=== PATIENT | male | born 1965 | race Caucasian/White ===

== ENCOUNTER 2018-01-08 18:45 | Inpatient (IN) | payer OTHER, SELFPAY ==
[2018-01-08 19:20] VITALS: BP 154/85; PULSE 89; RESP 23; TEMP 36.1; O2SAT 96; BMI 29.8
--- NOTE | 2018-01-08 19:23 | DI.RAD.S_ITS ---
PROCEDURE: XR ACUTE ABDOMEN SERIES INDICATIONS: vomiting, small bowel obstruction TECHNIQUE: One view chest and two views of the abdomen were acquired. COMPARISON: [facility], CT, ABDOMEN/PELVIS WITH CONTRAST, 07/21/2017, 1:28. FINDINGS: Surgical changes and devices: None. Chest: Lungs are clear. Heart size is normal. No pleural effusions. No pneumoperitoneum. Abdomen: Bowel gas pattern demonstrates several scattered air-fluid levels as well as a mildly dilated loop of bowel within the midabdomen. No suspicious calcifications. Visualized solid organ contours appear normal. Bones: No suspicious bony lesions. IMPRESSION: Scattered air-fluid levels as well as a mildly dilated loop of bowel within the midabdomen. This could be represent ileus versus developing partial small bowel obstruction. Dictated by: Poonam Tapia M.D. on 01/08/2018 at 20:19 Approved by: Poonam Tapia M.D. on 01/08/2018 at 20:20
[2018-01-08] MEDS: MORPHINE 4 MG/ML INJ IV (19:28)
[2018-01-08] MEDS: SODIUM CHLORIDE 0.9% 1,000 ML 1000 ML IV (19:28)
[2018-01-08] MEDS: ONDANSETRON 4 MG/2 ML INJ IV (19:29)
[2018-01-08 19:30] LABS: Add Manual Diff / Slide Review NO; Basophils Percent Auto 0.2 % (0-2); Eosinophils Percent Auto 0.2 % (2-4); Hematocrit 46.6 % (41-53); Hemoglobin 16.2 g/dL (13.5-17.5); Lymphocytes Percent Auto 8.9 % (25-40); Mean Corpuscular HGB Conc 34.8 % (30-36); Monocytes Percent Auto 3.9 % (3-14); Neutrophils Absolute Auto 15200 /uL (3000-5900); Neutrophils Percent Auto 86.8 % (50-75); Platelet Count 246 X10^3/uL (150-400); Red Blood Cell Count 5.24 X10^6/uL (4.5-5.9); Red Cell Distribution Width 13.6 % (11.6-14.8); White Blood Cell Count 17.5 X10^3/uL (4.5-11.0)
[2018-01-08 19:40] VITALS: BP 149/92; PULSE 80; RESP 12; O2SAT 100
[2018-01-08 19:41] LABS: Alanine Aminotransferase 47 IU/L (21-72); Albumin 5.1 g/dL (3.5-5.0); Albumin Globulin Ratio 1.8 (1.0-2.8); Alkaline Phosphatase 67 U/L (38-126); Aspartate Aminotransferase 33 IU/L (17-59); BUN Creatinine Ratio 28.8 (6-22); Bilirubin Total 1.7 mg/dL (0.2-1.3); Blood Urea Nitrogen 23 mg/dL (9-20); Calcium 9.7 mg/dL (8.4-10.2); Carbon Dioxide 27 mmol/L (22-32); Chloride 99 mmol/L (98-107); Creatine Kinase 132 U/L (55-170); Estimated Glomerular Filt Rate > 60.0 mL/min (>60); Globulin 2.8 g/dL (1.7-4.1); Glucose 139 mg/dL (70-100); HEMOLYSIS < 15 (0-50); Lipase 49 U/L (23-300); Potassium 3.5 mmol/L (3.4-5.1); Sodium 141 mmol/L (137-145); Total Protein 7.9 g/dL (6.3-8.2)
--- NOTE | 2018-01-08 19:41 | ED.ABDPAIN ---
HPI - Abdominal Pain General Chief Complaint: Abdominal Pain Stated Complaint: THINKS BOWEL OBSTRUCTION Time Seen by Provider: 01/08/18 19:22 Source: patient Mode of arrival: ambulatory Limitations: no limitations History of Present Illness HPI narrative: Patient is a 52-year-old male who presents with abdominal pain and nausea. He says it is a small bowel obstruction he has had small bowel obstructions in the past. He had a colectomy due to diverticulitis. He says this started about 230pm. He is extremely dizzy lightheaded he is requiring assistance walking. He denies any chest pain or heart palpitations or shortness of breath. MD complaint: abdominal pain Onset (ago): hour(s) Pain Consistency: constant Location: diffuse Related Data Home Medications Medication Instructions Recorded Confirmed fluoxetine 20 mg PO DAILY 01/08/18 01/08/18 lisinopril-hydrochlorothiazide 1 tab PO DAILY 01/08/18 01/08/18 simvastatin 20 mg PO QPM 01/08/18 01/08/18 Allergies Allergy/AdvReac Type Severity Reaction Status Date / Time No Known Drug Allergies Allergy Verified 01/08/18 19:23 Review of Systems Review of Systems All systems reviewed & are unremarkable except as noted in HPI and below Constitutional Denies chills, Denies fever(s), Denies lethargy and Denies weakness Cardiovascular Denies chest pain, Denies irregular heart rhythm, Reports lightheadedness, Denies palpitations, Denies dyspnea, Denies dyspnea on exertion and Denies orthopnea Respiratory Denies cough, Denies dyspnea, Denies dyspnea on exertion and Denies wheezing Gastrointestinal Gastrointestinal: Reports as per HPI Musculoskeletal Denies back pain, Denies muscle weakness, Denies numbness and Denies tingling Integumentary/Breasts Denies pruritus, Denies erythema, Denies rash and Denies wounds Neurologic Denies numbness, Denies tingling and Denies weakness Endocrine Denies palpitations Allergic/Immunologic Denies wheezing [facility] Medical History Depression (Acute) Hyperlipidemia (Acute) Hypertension (Acute) Skin cancer of lip (Acute) Small bowel obstruction (Acute) Surgical History History of appendectomy (Acute) History of colon resection (Acute) Hx of tonsillectomy (Acute) Social History household members: spouse Smoking Status: Current some day smoker alcohol intake: current Exam Initial Vital Signs Initial Vital Signs: Vital Signs Temperature 96.9 F L 01/08/18 19:20 Pulse Rate 89 01/08/18 19:20 Respiratory Rate 23 01/08/18 19:20 Blood Pressure 154/85 H 01/08/18 19:20 Pulse Oximetry 96 01/08/18 19:20 Const General: cooperative and ill appearing (Ambulatory unsteady on feet) Nutritional Appearance: average body habitus [facility] Head: normocephalic and atraumatic Neck Neck: normal visual inspection and full ROM Chest Chest: normal inspection of the chest Resp Effort & Inspection: normal respiratory effort, able to speak in complete sentences, no respiratory distress and no use of accessory muscles Auscultation: clear to auscultation bilaterally, no rales, no rhonchi and no wheezes Cardio Rate: regular rate Rhythm: regular rhythm Heart Sounds: no click, no gallops, no murmurs and no rubs Pulses: normal peripheral pulses GI Palpation: soft, No firm, No guarding and tender (Diffusely) Auscultation: abnormal bowel sounds (Decreased) Skin General: no rashes or lesions noted, No jaundice and No petechiae Course Orders Ordered: ED Orders 01/08/18 19:20 Complete Blood Count AUTO DIFF Stat Comprehensive Metabolic Panel Stat Lactate (Lactic Acid) Stat Lipase Stat Troponin & CK Cardiac Panel Stat 01/08/18 19:23 XR acute abdomen series Stat EKG-12 Lead Stat 01/08/18 20:17 CT abdomen pelvis w con Stat 01/08/18 22:26 Consult to Physician Routine 01/08/18 23:30 Lactate 4HR (Lactic Acid Rflx) Stat Sodium Chloride (Normal Saline 0.9%) 1,000 mls @ 125 mls/hr IV CONT GWENDOLYN Last Admin: 01/08/18 22:53 Dose: 125 mls/hr Morphine Sulfate (Morphine) 2 mg IV Q4HR PRN PRN Reason: Pain, Moderate (4-6) Ondansetron HCl (Zofran) 4 mg IV Q4HR PRN PRN Reason: Nausea And Vomiting Discontinued Medications Sodium Chloride (Normal Saline 0.9%) 1,000 mls @ 1,000 mls/hr IV CONT GWENDOLYN Last Infusion: 01/08/18 20:55 Dose: 0 mls/hr Admin: 01/08/18 19:28 Dose: 1,000 mls/hr Morphine Sulfate (Morphine) 4 mg IV NOW ONE Stop: 01/08/18 19:24 Last Admin: 01/08/18 19:28 Dose: 4 mg Ondansetron HCl (Zofran) 4 mg IV NOW ONE Stop: 01/08/18 19:24 Last Admin: 01/08/18 19:29 Dose: 4 mg Consultations Consultation #1: Dr. Santoyo accepts observation for partial small-bowel obstruction. Vital Signs - 8 hr 01/08/18 19:40 01/08/18 21:16 01/08/18 21:55 Temperature Pulse Rate 80 77 73 Respiratory Rate 12 12 23 Blood Pressure 127/69 H Blood Pressure [Left Arm] 149/92 H 131/76 H Pulse Oximetry 100 98 96 01/08/18 22:10 01/09/18 00:03 01/09/18 00:31 Temperature 98.5 F 98.3 F Pulse Rate 76 70 Respiratory Rate 19 16 Blood Pressure 137/77 H 118/70 Blood Pressure [Left Arm] Pulse Oximetry 95 MDM - Abdominal Pain Lab Data Attestation: I reviewed the patient's lab results. Result diagrams: 01/08/18 19:20 01/08/18 19:20 Lab Results 01/08/18 01/08/18 01/08/18 Range/Units 19:20 19:20 19:20 WBC 17.5 H (4.5-11.0) X10^3/uL RBC 5.24 (4.5-5.9) X10^6/uL Hgb 16.2 (13.5-17.5) g/dL Hct 46.6 (41-53) % MCV 89.0 (80-100) fL MCH 31.0 (26-34) PG MCHC 34.8 (30-36) % RDW 13.6 (11.6-14.8) % Plt Count 246 (150-400) X10^3/uL Neut % (Auto) 86.8 H (50-75) % Lymph % (Auto) 8.9 L (25-40) % [place] % (Auto) 3.9 (3-14) % Eos % (Auto) 0.2 L (2-4) % Baso % (Auto) 0.2 (0-2) % Neut # (Auto) 72363 H (6768-6068) /uL Sodium 141 (137-145) mmol/L Potassium 3.5 (3.4-5.1) mmol/L Chloride 99 (98-107) mmol/L Carbon Dioxide 27 (22-32) mmol/L BUN 23 H (9-20) mg/dL Creatinine 0.80 (0.66-1.25) mg/dL Estimated GFR > 60.0 (>60) mL/min BUN/Creatinine Ratio 28.8 H (6-22) Glucose 139 H (70-100) mg/dL Lactate 2.9 H (0.7-2.1) mmol/L Calcium 9.7 (8.4-10.2) mg/dL Total Bilirubin 1.7 H (0.2-1.3) mg/dL AST 33 (17-59) IU/L ALT 47 (21-72) IU/L Alkaline Phosphatase 67 (38-126) U/L Total Creatine Kinase 132 (55-170) U/L CK-MB (CK-2) 1.50 (<2.37) ng/mL CK-MB (CK-2) Rel Index 1.1 L (1.5-5.0) % Troponin I < 0.012 (0.01-0.034) ng/mL Total Protein 7.9 (6.3-8.2) g/dL Albumin 5.1 H (3.5-5.0) g/dL Globulin 2.8 (1.7-4.1) g/dL Albumin/Globulin Ratio 1.8 (1.0-2.8) Lipase 49 (23-300) U/L /30/18 Range/Units 23:30 WBC (4.5-11.0) X10^3/uL RBC (4.5-5.9) X10^6/uL Hgb (13.5-17.5) g/dL Hct (41-53) % MCV (80-100) fL MCH (26-34) PG MCHC (30-36) % RDW (11.6-14.8) % Plt Count (150-400) X10^3/uL Neut % (Auto) (50-75) % Lymph % (Auto) (25-40) % [place] % (Auto) (3-14) % Eos % (Auto) (2-4) % Baso % (Auto) (0-2) % Neut # (Auto) (1256-7982) /uL Sodium (137-145) mmol/L Potassium (3.4-5.1) mmol/L Chloride (98-107) mmol/L Carbon Dioxide (22-32) mmol/L BUN (9-20) mg/dL Creatinine (0.66-1.25) mg/dL Estimated GFR (>60) mL/min BUN/Creatinine Ratio (6-22) Glucose (70-100) mg/dL Lactate 1.8 (0.7-2.1) mmol/L Calcium (8.4-10.2) mg/dL Total Bilirubin (0.2-1.3) mg/dL AST (17-59) IU/L ALT (21-72) IU/L Alkaline Phosphatase (38-126) U/L Total Creatine Kinase (55-170) U/L CK-MB (CK-2) (<2.37) ng/mL CK-MB (CK-2) Rel Index (1.5-5.0) % Troponin I (0.01-0.034) ng/mL Total Protein (6.3-8.2) g/dL Albumin (3.5-5.0) g/dL Globulin (1.7-4.1) g/dL Albumin/Globulin Ratio (1.0-2.8) Lipase (23-300) U/L Imaging Data Abdominal x-ray: Radiologist's impression: PROCEDURE: XR ACUTE ABDOMEN SERIES INDICATIONS: vomiting, small bowel obstruction TECHNIQUE: One view chest and two views of the abdomen were acquired. COMPARISON: [facility], CT, ABDOMEN/PELVIS WITH CONTRAST, 07/21/2017, 1:28. FINDINGS: Surgical changes and devices: None. Chest: Lungs are clear. Heart size is normal. No pleural effusions. No pneumoperitoneum. Abdomen: Bowel gas pattern demonstrates several scattered air-fluid levels as well as a mildly dilated loop of bowel within the midabdomen. No suspicious calcifications. Visualized solid organ contours appear normal. Bones: No suspicious bony lesions. IMPRESSION: Scattered air-fluid levels as well as a mildly dilated loop of bowel within the midabdomen. This could be represent ileus versus developing partial small bowel obstruction. Dictated by: Poonam Tapia M.D. on 01/08/2018 at 20:19 CT scan - abdomen: Radiologist's impression: PROCEDURE: CT ABDOMEN PELVIS W CON INDICATIONS: obstruction on x ray TECHNIQUE: After the administration of intravenous contrast, 5 mm thick sections acquired from the diaphragm to the symphysis. 5 mm coronal and sagittal reformats were acquired. For radiation dose reduction, the following was used: automated exposure control, adjustment of mA and/or kV according to patient size. COMPARISON: [facility], CT, ABDOMEN/PELVIS WITH CONTRAST, 11/12/2014, 9:06. FINDINGS: Image quality: Excellent. ABDOMEN: Lung bases: Lung bases are clear. Heart size is normal. Solid organs: Liver demonstrates mild enlargement and steatosis. Punctate low attenuation focus is present within the mid right hepatic lobe, unchanged and too small to definitively characterize. Gallbladder is unremarkable. Biliary system is non dilated. Pancreas enhances normally. Spleen is normal in size and enhancement. No adrenal nodules. Kidneys demonstrate normal size and enhancement, without hydronephrosis. Peritoneum and bowel: Air-fluid filled prominent loops of small bowel identified within the abdomen. Transition point is not definitively identified. Minimal free fluid is present. Nodes and vessels: No retroperitoneal or mesenteric adenopathy by size criteria. Aorta and inferior vena cava are normal in size. Miscellaneous: No ventral hernias. PELVIS: Genitourinary: Bladder wall thickness is normal. Miscellaneous: No inguinal hernias or adenopathy. Bones: No suspicious bony lesions. No vertebral body compression fractures. IMPRESSION: 1. Prominent loops of fluid-filled small bowel within the abdomen as above consistent with partial small bowel obstruction. Transition point is not definitively identified. No free air. Dictated by: Poonam Tapia M.D. on 01/08/2018 at 20:46 ECG Data Attestation: I personally reviewed and interpreted this ECG as follows: Prior ECG tracings: available for review Interpretation: Normal sinus rhythm rate [address] changes no T-wave inversions similar to previous EKG MDM Narrative Medical decision making narrative: The patient's pain and nausea is improved after 1 dose of nausea and pain medication. His abdomen is reexamined it is all a soft and mildly distended. Both CT and x-ray showed a partial small-bowel obstruction. Initially he does have an elevated lactic acid. Pain is not out of proportion there is no concern for ischemic bowel at this time. Initially he was ambulatory walking into the ED but got extremely light headed nauseated and almost passed out requiring 3 people to assist him. He says the lightheadedness has now also improved with IV fluids. Discharge Plan Departure Patient Disposition: Admitted as Observation Clinical Impression: Partial bowel obstruction Discharge Date/Time: 01/08/18 21:55 Interventions: ED Discharge Assessment Last Done: 01/08/18 21:55 Admit Date/Time: 01/08/18 21:46 Admit Provider: Frantz Santoyo
[2018-01-08 19:45] LABS: Lactate (Lactic Acid) 2.9 mmol/L (0.7-2.1)
[2018-01-08 19:56] LABS: CKMB % Relative Index 1.1 % (1.5-5.0)
[2018-01-08 19:57] LABS: Troponin I < 0.012 ng/mL (0.01-0.034)
--- NOTE | 2018-01-08 20:17 | DI.CT.S_ITS ---
PROCEDURE: CT ABDOMEN PELVIS W CON INDICATIONS: obstruction on x ray TECHNIQUE: After the administration of intravenous contrast, 5 mm thick sections acquired from the diaphragm to the symphysis. 5 mm coronal and sagittal reformats were acquired. For radiation dose reduction, the following was used: automated exposure control, adjustment of mA and/or kV according to patient size. COMPARISON: [facility], CT, ABDOMEN/PELVIS WITH CONTRAST, 11/12/2014, 9:06. FINDINGS: Image quality: Excellent. ABDOMEN: Lung bases: Lung bases are clear. Heart size is normal. Solid organs: Liver demonstrates mild enlargement and steatosis. Punctate low attenuation focus is present within the mid right hepatic lobe, unchanged and too small to definitively characterize. Gallbladder is unremarkable. Biliary system is non dilated. Pancreas enhances normally. Spleen is normal in size and enhancement. No adrenal nodules. Kidneys demonstrate normal size and enhancement, without hydronephrosis. Peritoneum and bowel: Air-fluid filled prominent loops of small bowel identified within the abdomen. Transition point is not definitively identified. Minimal free fluid is present. Nodes and vessels: No retroperitoneal or mesenteric adenopathy by size criteria. Aorta and inferior vena cava are normal in size. Miscellaneous: No ventral hernias. PELVIS: Genitourinary: Bladder wall thickness is normal. Miscellaneous: No inguinal hernias or adenopathy. Bones: No suspicious bony lesions. No vertebral body compression fractures. IMPRESSION: 1. Prominent loops of fluid-filled small bowel within the abdomen as above consistent with partial small bowel obstruction. Transition point is not definitively identified. No free air. Dictated by: Poonam Tapia M.D. on 01/08/2018 at 20:46 Approved by: Poonam Tapia M.D. on 01/08/2018 at 20:52
[2018-01-08 21:16] VITALS: BP 131/76; PULSE 77; RESP 12; O2SAT 98
[2018-01-08 21:55] VITALS: BP 127/69; PULSE 73; RESP 23; O2SAT 96
[2018-01-08 21:59] VITALS: BMI 29.8
[2018-01-08 22:10] VITALS: BP 137/77; PULSE 76; RESP 19; TEMP 36.9
--- NOTE | 2018-01-08 22:48 | PC.NURSE ---
Luis brought from ER, able to transfer self to bed. Gait steady. VS stable. Denies nausea, reports pain just starting to come back. Instructed to call nurse if pain increases & he needs pain medication, he agrees. Denies falls at home. Ambulated to BR, voided 650 ml clear yellow urine. UA sent to lab per SECURITY CLERK report of still needing sample. Pt Ox3 and call button is at his side. brought his own Cpap from home. Pt instructed to call if he has any needs or concerns tonight.
[2018-01-08] MEDS: SODIUM CHLORIDE 0.9% 1,000 ML 125 ML IV (22:53)
[2018-01-08 23:27] LABS: Reflexed Lactate in 2 Hours Y
[2018-01-08 23:49] LABS: Lactate 2HR (Lactic Acid Rflx) 1.8 mmol/L (0.7-2.1)
[2018-01-09] VITALS (10 sets, daily range): BP systolic 107–133; BP diastolic 61–84; PULSE 57–72; RESP 15–19; TEMP 36.4–36.9; O2SAT 95–96
[2018-01-09] MEDS: MORPHINE 2 MG/ML INJ IV (03:43)
[2018-01-09] MEDS: ONDANSETRON 4 MG/2 ML INJ IV (03:43)
--- NOTE | 2018-01-09 06:09 | PC.NURSE ---
NOC shift pt IND in room. Wearing CPAP. Patient denied nausea during first part of shit and rated his pain at a 2/10; denied need for pain meds and stated that 2/10 was tolerable. After pt got up to BR at 0340, pt report 6/10 and nausea. Administered 4mg Zofran IV and 2mg morphine IV. Let pt continue to sleep when time to reassess. NS running at 125ml/hr.
[2018-01-09] MEDS: SODIUM CHLORIDE 0.9% 1,000 ML 125 ML IV (06:14)
--- NOTE | 2018-01-09 08:45 | CM.DANOTE ---
Discharge Planning/Care Management DCP: assessment: case received, EMR reviewed (no H&P yet available) and went to room to meet with pt. He was found to be in bathroom. Room white board updated with DCPlanning contact info. Pt is a 52 year old male who admitted last night to care of hospitalist team. Payer: Ryder Edwards. PCP: Kehinde Wolf/listed PT is admitted for s/s of possible bowel obstruction in settiing of prior colectomy and SBOs/hx since that surgery. Pt at baseline is functionally independent. Does use CPAP at home. Lives with spouse P: check in with pt as POC unfolds to assist with any d/c needs that may arise. CM Discharge Assessment Start: 01/09/18 08:43 Freq: Status: Active Protocol: Document 01/09/18 08:43 ITV (Rec: 01/09/18 08:44 ITV [id number]) Discharge Planning Assessment History Provided By Patient Is this patient on Medicare? No Prior Living Arrangements House Household Members spouse Independent with ADL's Yes Is patient alert and oriented? Yes Review Status In Process Next Review Type Continued Stay Review
--- NOTE | 2018-01-09 09:17 | PC.NURSE ---
Day shift: Per convo with Pt provided info on both high and low-fiber diets. Rv Repair Technician notified about situation as well per convo w/ .
--- NOTE | 2018-01-09 12:19 | PC.NURSE ---
Day shift: Talked to Dr Hoffman about the orderes for UA. He is ok with that.
--- NOTE | 2018-01-09 12:27 | PC.NURSE ---
Day sift: Ok w/ Dr Hoffman if Pt has ice chips. Pt enjoying ice chips. Will cont to monitor. Call light in reach. Independent in room. Denies any pain or nausea at this time.
[2018-01-09 12:48] LABS: Bacteria Urine None Seen
[2018-01-09 13:00] LABS: Appearance Urine UA CLEAR; Bilirubin Urine UA NEGATIVE (NEGATIVE); Color Urine UA YELLOW; Glucose Urine UA NEGATIVE (Normal); Ketones Urine UA 1+ (NEGATIVE); Leukocyte Esterase Urine UA NEGATIVE (NEGATIVE); Nitrite Urine UA Negative (Negative); Occult Blood Urine UA TRACE-LYSED (Negative); Protein Urine UA NEGATIVE (Negative); Urobilinogen Urine UA 0.2 E.U./dL (0.2); pH Urine UA 7.5 (4.5-8.0)
--- NOTE | 2018-01-09 13:07 | PC.NURSE ---
Day shift: Emptied 100ml blackish bile fluid from IVIS drain.
[2018-01-09 13:13] LABS: RBC Urine 1-5/HPF (0-5/HPF); Squamous Epithelial Cell Urine 0-1 /HPF; WBC Urine 0-1/HPF (0-5/HPF)
[2018-01-09 13:14] LABS: Culture Indicated Urine Cult Not Indicated
--- NOTE | 2018-01-09 13:17 | PM.HP.1 ---
History of Present Illness Date Patient Seen: 01/09/18 Time Patient Seen: 11:17 Chief complaint: THINKS BOWEL OBSTRUCTION Narrative: Somewhat diffuse abdominal pain with associated nausea and vomiting. Patient notes the severity of the pain approximately 8/10. No associated chest pain nor shortness of breath nor palpitations. Patient also noted was feeling a bit lightheaded. Patient notes that he had a prior small bowel obstruction July of 2017. This was the 2nd small bowel obstruction. His 1st bowel obstruction was November of 2014. Patient has history of diverticulitis with a sigmoid colon resection in 1999. This appears to be the causation for his risk for fibrous adhesions and small-bowel obstruction. Patient History Medical History Depression (Acute) Hyperlipidemia (Acute) Hypertension (Acute) Skin cancer of lip (Acute) Small bowel obstruction (Acute) Surgical History History of appendectomy (Acute) History of colon resection (Acute) Hx of tonsillectomy (Acute) Family & Social History Social History: household members spouse Prior Living Arrangements House Safety & Behavioral: Feels Safe in Current Yes Environment Been Physically Hurt or No Threatened By a Person Suicidal Ideation Description None Suicide Plan Description No Plan Tobacco & Substance use: Tobacco type cigars Smoking Status Current some day smoker alcohol intake current alcohol intake frequency a few times a month Substance Use Type does not use Meds Home Medications Medication Instructions Recorded Confirmed Type fluoxetine 20 mg PO DAILY 01/08/18 01/08/18 History lisinopril-hydrochlorothiazide 1 tab PO DAILY 01/08/18 01/08/18 History simvastatin 20 mg PO QPM 01/08/18 01/08/18 History Allergies Allergy/AdvReac Type Severity Reaction Status Date / Time No Known Drug Allergies Allergy Verified 01/08/18 19:23 Review of Systems Review of Systems A 10 point review of system was obtained. System review was negative apart from the symptoms as described in HPI. As noted patient with diffuse abdominal pain with nausea vomiting. Severity of the abdominal pain 8/10. No chest pain or shortness of breath Exam Vital Signs (past 8 hours): - 01/09/18 08:45 Temperature 98.5 F Pulse Rate 63 Respiratory Rate 16 Blood Pressure 115/67 Pulse Oximetry 96 Oxygen Delivery Method Room Air Narrative Exam Narrative: Patient is noted as a relatively healthy-appearing 52 years of age male. Good nutritional status. HENMT Other: Grossly intact hearing is noted. Dentition is good. No lesions noted to the mouth region. Septum of nose to midline no bleeding Eyes Other: Pupils are equal round and reactive to light. Chest Other: Symmetric expansion noted normal exam Resp Other: Clear to auscultation with relatively good airflow no wheezes no crackles. Cardio Other: Regular in rate and rhythm. No murmur rubs or gallops noted GI Other: Somewhat diffuse tenderness to abdomen. Soft with no guarding. Positive bowel sounds are noted. No bruits. Skin Other: No rash nor lesions nonjaundiced good turgor Neuro Other: No focal neurologic changes. Cranial nerves 2-12 grossly intact Psych Other: Awake and alert and well-oriented mood is pleasant cooperative. Objective Labs Result Diagrams: 01/08/18 19:20 01/08/18 19:20 Labs: Laboratory Results - last 24 hr 01/08/18 01/08/18 01/08/18 19:20 19:20 19:20 WBC 17.5 H RBC 5.24 Hgb 16.2 Hct 46.6 MCV 89.0 MCH 31.0 MCHC 34.8 RDW 13.6 Plt Count 246 Neut % (Auto) 86.8 H Lymph % (Auto) 8.9 L [place] % (Auto) 3.9 Eos % (Auto) 0.2 L Baso % (Auto) 0.2 Neut # (Auto) 28669 H Sodium 141 Potassium 3.5 Chloride 99 Carbon Dioxide 27 BUN 23 H Creatinine 0.80 Estimated GFR > 60.0 BUN/Creatinine Ratio 28.8 H Glucose 139 H Lactate 2.9 H Calcium 9.7 Total Bilirubin 1.7 H AST 33 ALT 47 Alkaline Phosphatase 67 Total Creatine Kinase 132 CK-MB (CK-2) 1.50 CK-MB (CK-2) Rel Index 1.1 L Troponin I < 0.012 Total Protein 7.9 Albumin 5.1 H Globulin 2.8 Albumin/Globulin Ratio 1.8 Lipase 49 Urine Color Urine Appearance Urine pH Ur Specific [place] Urine Protein Urine Glucose (UA) Urine Ketones Urine Occult Blood Urine Nitrate Urine Bilirubin Urine Urobilinogen Ur Leukocyte Esterase Urine RBC Urine WBC Ur Squamous Epith Cells Urine Bacteria Ur Culture Indicated? Micro UA Comment 01/08/18 01/09/18 23:30 11:36 WBC RBC Hgb Hct MCV MCH MCHC RDW Plt Count Neut % (Auto) Lymph % (Auto) [place] % (Auto) Eos % (Auto) Baso % (Auto) Neut # (Auto) Sodium Potassium Chloride Carbon Dioxide BUN Creatinine Estimated GFR BUN/Creatinine Ratio Glucose Lactate 1.8 Calcium Total Bilirubin AST ALT Alkaline Phosphatase Total Creatine Kinase CK-MB (CK-2) CK-MB (CK-2) Rel Index Troponin I Total Protein Albumin Globulin Albumin/Globulin Ratio Lipase Urine Color Yellow Urine Appearance Clear Urine pH 7.5 Ur Specific [place] 1.010 Urine Protein Negative Urine Glucose (UA) Negative Urine Ketones 1+ H Urine Occult Blood Trace-lysed Urine Nitrate Negative Urine Bilirubin Negative Urine Urobilinogen 0.2 Ur Leukocyte Esterase Negative Urine RBC 1-5/hpf Urine WBC 0-1/hpf Ur Squamous Epith Cells 0-1 /hpf Urine Bacteria None seen Ur Culture Indicated? 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 Incomplete small bowel obstruction CT of the abdomen pelvis with IV contrast notes multiple air-fluid levels consistent with incomplete small bowel obstruction. No definite transition point identified. Patient is NPO at this time except meds and sips of water or ice chips. Repeat labs in a.m.. Analgesic with IV Dilaudid as needed every 2 hr. Antiemetic therapy provided with Zofran as needed. Will consider using GI small bowel x-ray series with Gastrografin in a.m. which can provide both therapeutic as well as diagnostic utility. 2. Other past medical history prior to admission Includes history of depression hypertension hyperlipidemia will continue his home meds as tolerated. DVT prophylaxis Lovenox 40 mg subcu daily Discharge planning Patient will likely be stable for discharge in several days. Will likely be discharged to home with no additional supportive care upon discharge. Time spent with patient 70 min
[2018-01-09] MEDS: DEXTROSE 5%-0.45% NS 1,000 ML 130 ML IV ×2 (13:24→21:30)
[2018-01-09] MEDS: ENOXAPARIN 40 MG/0.4 ML SYRINGE SUBCUT (13:25)
[2018-01-10] VITALS (7 sets, daily range): BP systolic 116–140; BP diastolic 71–90; PULSE 59–65; RESP 15–18; TEMP 36.4–37.1; O2SAT 96–99
[2018-01-10] MEDS: DEXTROSE 5%-0.45% NS 1,000 ML 130 ML IV (05:12)
[2018-01-10 05:40] LABS: Add Manual Diff / Slide Review NO; Basophils Percent Auto 0.4 % (0-2); Eosinophils Percent Auto 1.6 % (2-4); Hematocrit 36.1 % (41-53); Hemoglobin 12.3 g/dL (13.5-17.5); Mean Corpuscular HGB Conc 34.1 % (30-36); Mean Corpuscular Volume 90.7 fL (80-100); Monocytes Percent Auto 8.1 % (3-14); Neutrophils Absolute Auto 4200 /uL (3000-5900); Neutrophils Percent Auto 64.9 % (50-75); Platelet Count 163 X10^3/uL (150-400); Red Blood Cell Count 3.98 X10^6/uL (4.5-5.9); Red Cell Distribution Width 13.4 % (11.6-14.8); White Blood Cell Count 6.5 X10^3/uL (4.5-11.0)
[2018-01-10 05:58] LABS: Alanine Aminotransferase 33 IU/L (21-72); Albumin 3.1 g/dL (3.5-5.0); Albumin Globulin Ratio 1.4 (1.0-2.8); Alkaline Phosphatase 36 U/L (38-126); Aspartate Aminotransferase 17 IU/L (17-59); BUN Creatinine Ratio 15.6 (6-22); Bilirubin Total 0.9 mg/dL (0.2-1.3); Blood Urea Nitrogen 14 mg/dL (9-20); Calcium 8.3 mg/dL (8.4-10.2); Carbon Dioxide 29 mmol/L (22-32); Chloride 106 mmol/L (98-107); Estimated Glomerular Filt Rate > 60.0 mL/min (>60); Globulin 2.2 g/dL (1.7-4.1); Glucose 109 mg/dL (70-100); HEMOLYSIS < 15 (0-50); Potassium 3.8 mmol/L (3.4-5.1); Sodium 140 mmol/L (137-145); Total Protein 5.3 g/dL (6.3-8.2)
[2018-01-10] MEDS: ENOXAPARIN 40 MG/0.4 ML SYRINGE SUBCUT (09:17)
--- NOTE | 2018-01-10 12:51 | PC.NURSE ---
Am shift Pt continues to improve, BT remain slightly hypoactive. N o nausea, no need for narcotic pain control. Pt is eager to advance to a diet. Will Discuss with hospitalist. Pt had shower and is indep. ambulating in the crowder. Reviewed low residue diet with Pt and POC. IVF paused for shower/ambulation.
--- NOTE | 2018-01-10 20:11 | P.PN_ITS ---
Subjective Date Patient Seen: 01/10/18 Time Patient Seen: 15:08 Interval history: History of present illness Follow up on patient with incomplete small bowel obstruction. Patient's diet advanced today. Review of systems Patient notes that he is feeling much better. He had a bowel movement early this morning he has been passing gas since yesterday. No chest pain or shortness of breath no nausea. Exam Vital Signs (past 8 hours): - 01/10/18 15:00 01/10/18 15:35 01/10/18 20:04 Temperature 97.5 F L 98.7 F Pulse Rate 65 64 Respiratory Rate 18 18 Blood Pressure 137/81 H 140/90 H Pulse Oximetry 99 Oxygen Delivery Method Room Air Narrative Exam Narrative: Physical exam general appearance patient is awake and alert no apparent distress Psychiatric Well oriented mood is pleasant cooperative anxious for discharge Respiratory Clear to auscultation no wheezes no crackles good airflow Cardiovascular Regular in rate and rhythm no murmurs rubs or gallops noted PMI nondisplaced GI fairly soft nontender positive bowel sounds no distension no guarding Neurologic no focal neurologic changes cranial nerves 2-12 are grossly intact Objective Labs Result Diagrams: 01/10/18 05:23 01/10/18 05:23 Labs: Laboratory Results - last 24 hr 01/10/18 01/10/18 05:23 05:23 WBC 6.5 D RBC 3.98 L Hgb 12.3 L Hct 36.1 L MCV 90.7 MCH 31.0 MCHC 34.1 RDW 13.4 Plt Count 163 Neut % (Auto) 64.9 D Lymph % (Auto) 25.0 [place] % (Auto) 8.1 Eos % (Auto) 1.6 L Baso % (Auto) 0.4 Neut # (Auto) 4200 Sodium 140 Potassium 3.8 Chloride 106 Carbon Dioxide 29 BUN 14 Creatinine 0.90 Estimated GFR > 60.0 BUN/Creatinine Ratio 15.6 Glucose 109 H Calcium 8.3 L Total Bilirubin 0.9 AST 17 ALT 33 Alkaline Phosphatase 36 L Total Protein 5.3 L Albumin 3.1 L Globulin 2.2 Albumin/Globulin Ratio 1.4 Assessment & Plan Plan: Assessment/Plan Narrative: 1. Incomplete small bowel obstruction CT of the abdomen pelvis with IV contrast notes multiple air-fluid levels consistent with incomplete small bowel obstruction. No definite transition point identified. Patient was advanced in his diet to clear liquid at lunch and to full liquid diet for dinner. Analgesic with IV Dilaudid as needed every 2 hr. Antiemetic therapy provided with Zofran as needed. IF he continues to do well he is likely suitable for discharge tomorrow in am. 2. Other past medical history prior to admission Includes history of depression hypertension hyperlipidemia will continue his home meds as tolerated. DVT prophylaxis Lovenox 40 mg subcu daily Discharge planning Patient will likely be stable for discharge tomorrow and discharged to home with no additional supportive care upon discharge. Time Spent With Patient Time with patient: 25 - 35 minutes
--- NOTE | 2018-01-22 20:17 | PM.DS.1 ---
History of Present Illness Chief complaint: THINKS BOWEL OBSTRUCTION Discharge Providers Date of admission: 01/08/18 21:46 Primary care physician: Kehinde Wolf MD Consults: 01/08/18 22:26 Consult to Physician Routine Comment: Consulting Provider: Frantz Santoyo Reason for consultation: admission Has provider been notified: Yes Discharge provider: Pratik Doll MD Summary Discharge Diagnosis: 1. Acute small bowel obstruction Hospital Course: Patient admitted with small-bowel obstruction which resolved on its own. He was tolerating regular diet and having bowel movements and desire to be discharged in the evening of 01/10/2018. No physician was in house to see him for discharge but I was able to provide verbal order to discharge patient based on information provided to me by his nurse. He will resume routine medications and regular diet. Follow up with his PCP. Status at Discharge Overall status at discharge: patient is back to baseline Exam Vital Signs (past 8 hours): Oxygen Delivery Method Room Air Objective Labs Result Diagrams: 01/10/18 05:23 01/10/18 05:23 Discharge Plan Discharge Plan Patient Disposition: Home, Self-Care Discharge comment: follow up is PCP next week Discharge Med Rec/Prescriptions Prescriptions: No Action simvastatin 20 mg Tablet 20 mg PO QPM RF: 0 fluoxetine 20 mg Tablet 20 mg PO DAILY RF: 0 lisinopril-hydrochlorothiazide 20-25 mg Tablet 1 tab PO DAILY RF: 0 Provider Discharge Instructions Diet comment: advance as tolerated Activity: as tolerated Discharge Data Primary Care Provider: Kehinde Wolf Attending Provider: Car Farr Admit Date/Time: 01/08/18 21:46 Discharges patient from system. Discharge Date/Time: 01/10/18 21:50
== END 2018-01-10 21:50 | disposition home or self-care (01) | DRG 390 ==
LOC: ED 21:38 → AC 01-09 07:08
PROVIDERS: Admitting Provider Internal Medicine; Emergency Provider Emergency Medicine; Visit Provider Internal Medicine
DX: K56.600 Partial intestinal obstruction, unspecified as to cause (principal); I10 Essential (primary) hypertension; E78.5 Hyperlipidemia, unspecified; F17.290 Nicotine dependence, other tobacco product, uncomplicated; F32.9 Major depressive disorder, single episode, unspecified
CPT/HCPCS: 36415; 36591; 74022; 74177; 80053; 81001; 82550; 82553; 83605; 83690; 84484; 85025; 93005; 93010; 96361; 96374; 96375; 99283; 99285; 99406; J1650; J2270; J2405; Q9967

== ENCOUNTER 2018-11-18 17:14 | Emergency (ER) | payer OTHER, SELFPAY ==
[2018-11-18 17:19] VITALS: BP 158/74; PULSE 89; RESP 16; TEMP 36.4; O2SAT 97; BMI 29.2
--- NOTE | 2018-11-18 17:42 | ED.WOUNDLAC ---
HPI - Wound/Laceration <Anastasia Morillo PA-C - Last Filed: 11/18/18 20:58> General Chief Complaint: Wound/Laceration Stated Complaint: laceration to right hand Time Seen by Provider: 11/18/18 17:30 Source: patient Mode of arrival: ambulatory Limitations: no limitations History of Present Illness HPI narrative: This 53-year-old gentle is working on a [employer] tractor more when his wrench slipped, and he cut his right hand on a flange. He is right-handed. He states that it was bleeding quite a bit initially, better with pressure. He did not clean it out. He states it is quite tender, but no difficulty moving the hand or fingers, no numbness or weakness. He denies any other injury. He had a tetanus vaccine 3 years ago. Related Data Home Medications Medication Instructions Recorded Confirmed fluoxetine 20 mg PO DAILY 01/08/18 01/08/18 lisinopril-hydrochlorothiazide 1 tab PO DAILY 01/08/18 01/08/18 simvastatin 20 mg PO QPM 01/08/18 01/08/18 Allergies Allergy/AdvReac Type Severity Reaction Status Date / Time No Known Drug Allergies Allergy Verified 01/08/18 19:23 Review of Systems <Anastasia Morillo PA-C - Last Filed: 11/18/18 20:58> Review of Systems ROS Unobtainable: All systems reviewed & are unremarkable except as noted in HPI and below PFSH <Anastasia Morillo PA-C - Last Filed: 11/18/18 20:58> Medical History Depression (Acute) Hyperlipidemia (Acute) Hypertension (Acute) Skin cancer of lip (Acute) Small bowel obstruction (Acute) Surgical History History of appendectomy (Acute) History of colon resection (Acute) Hx of tonsillectomy (Acute) Social History household members: spouse Smoking Status: Current some day smoker alcohol intake: current Social History household members: spouse Smoking Status: Current some day smoker alcohol intake: current Exam <Anastasia Morillo PA-C - Last Filed: 11/18/18 20:58> Narrative Exam Narrative: GENERAL APPEARANCE: Patient sitting comfortably, in no distress. LUNGS: Clear to auscultation bilaterally. HEART: Rate and rhythm regular without murmur, normal S1 and S2, no S3 or S4. DERMATOLOGIC: On the right palm, thenar side there is a macerated 2 cm long laceration, somewhat irregular, up to 3 mm gap and up to 3 -4 mm depth at the more proximal surface. 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/5 NEUROVASCULAR: Right hand fingers are warm and pink with brisk cap refill, sensation grossly intact Initial Vital Signs Initial Vital Signs: Vital Signs Temperature 97.6 F 11/18/18 17:19 Pulse Rate 89 11/18/18 17:19 Respiratory Rate 16 11/18/18 17:19 Blood Pressure 158/74 H 11/18/18 17:19 Pulse Oximetry 97 11/18/18 17:19 <DO Dominic Guidry Last Filed: 11/18/18 21:14> Initial Vital Signs Initial Vital Signs: Vital Signs Temperature 97.6 F 11/18/18 17:19 Pulse Rate 89 11/18/18 17:19 Respiratory Rate 16 11/18/18 17:19 Blood Pressure 158/74 H 11/18/18 17:19 Pulse Oximetry 97 11/18/18 17:19 Procedures <FRANCO Hutton Last Filed: 11/18/18 20:58> Laceration Repair Laceration 1: Site: upper extremity Side (If applicable): right Size (cm): 2 Description: linear and irregular Depth: simple, single layer Local Anesthetic: lidocaine 1% and with epi Amount of anesthesia used (mL): 5 Pre-repair: wound explored, irrigated extensively and deep structures intact Skin layer closed with: nylon Size (cm): 5-0 Number of sutures: 5 Technique: simple, interrupted Course <FRANCO Hutton Last Filed: 11/18/18 20:58> Vital Signs - 8 hr 11/18/18 17:19 11/18/18 19:09 Temperature 97.6 F Pulse Rate 89 77 Respiratory Rate 16 18 Blood Pressure 158/74 H 122/65 Pulse Oximetry 97 98 <DO Dominic Guidry Last Filed: 11/18/18 21:14> Vital Signs - 8 hr 11/18/18 17:19 11/18/18 19:09 Temperature 97.6 F Pulse Rate 89 77 Respiratory Rate 16 18 Blood Pressure 158/74 H 122/65 Pulse Oximetry 97 98 Discharge Plan Departure Patient Disposition: Home Clinical Impression: Laceration of hand, right Qualifiers: Encounter type: initial encounter Foreign body presence: without foreign body Qualified Code(s): S61.411A - Laceration without foreign body of right hand, initial encounter Discharge Date/Time: 11/18/18 19:11 Interventions: ED Discharge Assessment Last Done: 11/18/18 19:09 Instructions: DI for Laceration Repair Activity Restrictions/Additional Instructions: Please keep your sutures clean and dry. Protect/cover the wound when you are working or might put pressure on your hand. Quick showering off and patting dry is okay. Monitor for signs of infection such as increasing redness, swelling, pain, draining pus or fever. See your PCP, urgent care or the ED right away if any. Otherwise, the sutures should be ready to remove in about a week. This can be done with your PCP, or here or urgent care. Prescriptions: No Action simvastatin 20 mg Tablet 20 mg PO QPM RF: 0 fluoxetine 20 mg Tablet 20 mg PO DAILY RF: 0 lisinopril-hydrochlorothiazide 20-25 mg Tablet 1 tab PO DAILY RF: 0 Referrals: Kehinde Wolf MD [Primary Care Provider] - <Dat Wells DO - Last Filed: 11/18/18 21:14> Cosign ED Attending Nickolas Attestation: I was available for consultation during this patient's emergency department encounter
[2018-11-18 19:09] VITALS: BP 122/65; PULSE 77; RESP 18; O2SAT 98
== END 2018-11-18 19:11 | disposition home or self-care (01) ==
PROVIDERS: Emergency Provider Internal Medicine
DX: S61.411A Laceration without foreign body of right hand, initial encounter (principal); W26.8XXA Contact with other sharp object(s), not elsewhere classified, initial encounter
CPT/HCPCS: 12001; 99282; 99283

== ENCOUNTER 2019-02-27 13:04 | Day surgery (SDC) | payer OTHER, SELFPAY ==
[2019-02-27 14:19] VITALS: BP 124/81; PULSE 72; RESP 12; TEMP 36.6; O2SAT 96; BMI 27.3
--- NOTE | 2019-02-27 14:45 | PM.HP.1 ---
History of Present Illness History of Present Illness Date Patient Seen: 02/27/19 Time Patient Seen: 14:45 Chief complaint: [id number] Narrative: Patient is a 53year old male who presented for colonoscopy. Recurrent diverticulitis and partial obstruction history. Last seen in our office on December 19, 2018 - He denies any changes to his medications, medical history, surgical history since the time. Patient History Medical History Depression (Acute) Hyperlipidemia (Acute) Hypertension (Acute) Skin cancer of lip (Acute) Small bowel obstruction (Acute) Surgical History History of appendectomy (Acute) History of colon resection (Acute) Hx of tonsillectomy (Acute) Social History household members: spouse Smoking Status: Current some day smoker alcohol intake: current Family & Social History Social History: household members spouse Tobacco & Substance use: Tobacco type cigars Smoking Status Current some day smoker alcohol intake current alcohol intake frequency a few times a month Substance Use Type does not use Meds Home Medications and Allergies Home Medications Medication Instructions Recorded Confirmed Type fluoxetine 20 mg PO DAILY 01/08/18 02/27/19 History simvastatin 20 mg PO QPM 01/08/18 02/27/19 History Aspir-81 81 mg PO DAILY 02/27/19 02/27/19 History hydrochlorothiazide 25 mg PO DAILY 02/27/19 02/27/19 History lisinopril 20 mg PO DAILY 02/27/19 02/27/19 History Allergies Allergy/AdvReac Type Severity Reaction Status Date / Time No Known Drug Allergies Allergy Verified 01/08/18 19:23 Review of Systems Review of Systems ROS Unobtainable: All systems reviewed & are unremarkable except as noted in HPI and below Exam Vital Signs (past 8 hours): - 02/27/19 14:19 Temperature 98 F Pulse Rate 72 Respiratory Rate 12 Blood Pressure 124/81 Pulse Oximetry 96 Oxygen Delivery Method Room Air Narrative Exam Narrative: No acute distress Const General: cooperative, healthy appearing, comfortable and well developed Nutritional Appearance: average body habitus Orientation: alert, awake and oriented x3 HENMT Head: normocephalic and atraumatic Nose: external nose normal Resp Effort & Inspection: normal respiratory effort and able to speak in complete sentences Auscultation: clear to auscultation bilaterally Cardio Palpation: normal PMI Rate: regular rate Rhythm: regular rhythm Heart Sounds: S1 normal and S2 normal GI Palpation: soft and No tender Auscultation: normal bowel sounds Extrem General: normal to inspection and no pedal edema Assessment & Plan Assessment & Plan narrative: 1. Recurrent diverticulitis 2. History partial bowel obstructions - Colonoscopy today, further recommendations to follow
[2019-02-27] MEDS: fentaNYL 250 MCG/5 ML INJ IV (15:01)
[2019-02-27] MEDS: MIDAZOLAM 5 MG/5 ML VIAL IV (15:01)
--- NOTE | 2019-02-27 15:05 | PM.OP.ENDO ---
Operative Date/Time/Diagnoses Date of procedure: 02/27/19 Time of procedure: 14:49 Pre-op diagnosis: 1. Recurrent diverticulitis Procedure Notes Procedure in detail: Surgeon: Lulu Wahl DO Procedure: Colonoscopy to terminal ileum Preoperative diagnosis: 1. Recurrent diverticulitis Postoperative diagnosis: 1. Postoperative changes in the sigmoid colon consistent with hemicolectomy 2. Scattered diverticulosis throughout the entire colon 3. No evidence of inflammation noted 4. Mild internal hemorrhoids Medications: Conscious sedation using 4 mg IV of Midazolam and 100 mcg IV of Fentanyl Preanesthesia Assessment An H and P was performed/updated and the Px?s ASA class is 2. The procedure was discussed in detail with the patient. The potential risks and complications including infection, bleeding, missed lesions, perforation, need for surgery in case of perforation, prolonged hospital stay, and were explained. A brief question and answer period was allotted and once all questions were answered, informed consent was obtained. The patient was brought back to the procedure room and placed on standard monitoring. The patient?s vital signs were monitored continuously throughout the entire procedure. Prior to starting, a timeout was performed to confirm the patient?s identity, allergies, medications, and procedure. Procedure in detail The patient was placed in left lateral decubitus position and once adequate sedation was obtained a ANA was performed. The digital rectal examination did not reveal any palpable lesions. The tip of the colonoscope was placed in the anal canal and advanced without difficulty all the way to the cecum which was identified by the appendiceal orifice and the ileocecal valve. Scattered diverticulosis were noted throughout the entire colon. An end-to-end size colonic anastomosis was noted in the sigmoid colon consistent with prior hemicolectomy. Careful examination of all cristina of the colon was performed with irrigation of any residual stool. The patient tolerated the procedure well and will be brought back to the recovery area to be discharged once criteria are met. The prep was judged to be good/excellent and adequate to identify polyps less than 5 mm. The withdrawal time was 7min. The total physician intraservice time was 15min. Complications There were no complications and estimated blood loss was minimal. Recommendations: Resume previous diet Continue outPx medications Repeat colonoscopy in 10 years Office follow up in An emergency contact number was given to the patient for any complications related to the procedure
[2019-02-27 15:09] VITALS: BP 108/73; PULSE 72; RESP 12; TEMP 36.9; O2SAT 95
[2019-02-27 15:14] VITALS: BP 107/73; PULSE 71; RESP 13; O2SAT 96
[2019-02-27 15:19] VITALS: BP 111/73; PULSE 70; RESP 12; O2SAT 96
[2019-02-27 15:44] VITALS: BP 112/74; PULSE 67; RESP 14; TEMP 36.7; O2SAT 96
== END 2019-02-27 15:40 | disposition home or self-care (01) ==
LOC: ENDO 13:07
PROVIDERS: Student in an Organized Health Care Education/Training Program; PCP Family Medicine; Visit Provider Internal Medicine Gastroenterology
PROC: 0DJD8ZZ Inspection of Lower Intestinal Tract, Via Natural or Artificial Opening Endoscopic (ICD-10-PCS; CPT 45378; principal; 2019-02-27 13:30)
DX: K57.30 Diverticulosis of large intestine without perforation or abscess without bleeding (principal); K64.8 Other hemorrhoids; F17.210 Nicotine dependence, cigarettes, uncomplicated; F32.9 Major depressive disorder, single episode, unspecified; E78.5 Hyperlipidemia, unspecified; I10 Essential (primary) hypertension
CPT/HCPCS: 45378; J2250; J3010

== ENCOUNTER 2020-03-01 21:46 | Emergency (ER) | payer OTHER, SELFPAY ==
[2020-03-01 21:53] VITALS: BP 162/90; PULSE 75; RESP 18; TEMP 37; O2SAT 96; BMI 29.4
--- NOTE | 2020-03-01 22:06 | ED_ITS ---
HPI - Allergic Reaction General Chief complaint: Allergic Reaction Stated complaint: possible allergic reaction Time Seen by Provider: 03/01/20 21:58 Source: patient Mode of arrival: Ambulatory Limitations: no limitations History of Present Illness HPI narrative: Patient complains of itchy watery eyes and nasal discharge prior to arrival. Patient thinks milk weed may have triggered this. Never had that around his house before. Tried Visine without relief. Did take allergy pill before arrival. No trouble breathing no oral swelling. No rash. MD complaint: allergic reaction Related Data Home Medications Medication Instructions Recorded Confirmed fluoxetine 20 mg PO DAILY 01/08/18 02/27/19 simvastatin 20 mg PO QPM 01/08/18 02/27/19 Aspir-81 81 mg PO DAILY 02/27/19 02/27/19 hydrochlorothiazide 25 mg PO DAILY 02/27/19 02/27/19 lisinopril 20 mg PO DAILY 02/27/19 02/27/19 Previous Rx's Medication Instructions Recorded fluticasone propionate [Flonase 1 spray NASAL DAILY #11.1 ml 03/01/20 Allergy Relief] ketotifen fumarate 1 drop EYE-BOTH BID 5 Days #5 ml 03/01/20 methylprednisolone [Medrol (Khang)] See Rx Instructions .ROUTE 03/01/20 .COMPLEX #21 each Allergies Allergy/AdvReac Type Severity Reaction Status Date / Time No Known Drug Allergies Allergy Verified 03/01/20 21:53 Review of Systems Review of Systems Narrative: GENERAL: Denies chills, fatigue, malaise, fever, sweats. HEENT: Denies sinus pain, ear pain, sore throat, difficulty swallowing, dizziness. Complains of watery eyes itchy eyes and runny nose RESPIRATORY: Denies dyspnea, cough, wheezing, hemoptysis, sputum. CARDIOVASCULAR: Denies chest pain, palpitations, orthopnea, edema, GASTROINTESTINAL: Denies nausea, vomiting, abdominal pain, diarrhea, constipat ion, melena. : Denies dysuria, frequency, incontinence, hematuria, urinary retention. MUSCULOSKELETAL: denies weakness, joint pain, or bony pain SKIN: Denies rash, skin lesions NEUROLOGIC: Denies weakness, headache, numbness, change in speech, confusion, seizures, incoordination. PSYCHIATRIC: No concerning psychosocial issues. ROS Unobtainable: All systems reviewed & are unremarkable except as noted in HPI and below Patient History Medical History Depression (Acute) Hyperlipidemia (Acute) Hypertension (Acute) Skin cancer of lip (Acute) Small bowel obstruction (Acute) Surgical History History of appendectomy (Acute) History of colon resection (Acute) Hx of tonsillectomy (Acute) Social History household members: spouse Smoking Status: Current some day smoker alcohol intake: current Smoking Status: Current some day smoker tobacco type: cigars alcohol intake frequency: a few times a month Alcohol type: hard liquor Substance Use Type: does not use Exam Narrative Exam Narrative: GENERAL: patient appears stated age. Well-nourished, well- developed patient, in no distress, not toxic HEAD: Atraumatic. Normocephalic. EYES: Pupils equal round and reactive. Extraocular motions intact. Injected sclera and injected conjunctivae bilaterally. Watery discharge ENT: Nose without bleeding, boggy erythematous mucosa inside the nose with watery discharge Throat without erythema, tonsillar hypertrophy or exudate. Airway patent. CARDIOVASCULAR: Regular rate and rhythm without murmurs, gallops, or rubs. RESPIRATORY: Clear to auscultation. Breath sounds equal bilaterally. No wheezes, rales, or rhonchi. SKIN: No rash or erythema of visible areas PSYCH: Not anxious, is cooperative Initial Vital Signs Initial Vital Signs: Vital Signs Temperature 98.6 F 03/01/20 21:53 Pulse Rate 75 03/01/20 21:53 Respiratory Rate 18 03/01/20 21:53 Blood Pressure 162/90 H 03/01/20 21:53 Pulse Oximetry 96 03/01/20 21:53 Course Orders Ordered: Discontinued Medications Oxymetazoline HCl (Nasal Decongestant) 2 sprays NASAL NOW ONE Stop: 03/01/20 22:05 Last Admin: 03/01/20 22:18 Dose: Not Given Documented by: DAVONTE Oxymetazoline HCl (Nasal Decongestant) 2 sprays NASAL NOW ONE Stop: 03/01/20 22:11 Last Admin: 03/01/20 22:49 Dose: 2 sprays Documented by: JC Prednisone (Deltasone) 60 mg PO NOW ONE Stop: 03/01/20 22:05 Last Admin: 03/01/20 22:11 Dose: 60 mg Documented by: DAVONTE Reevaluation(s) Reevaluation #1: Not toxic no dyspnea no trouble breathing at time of discharge. Reviewed with patient treatment plan and patient agrees. Time: 22:16 Vital Signs Vital signs: Vital Signs - 8 hr 03/01/20 21:53 03/01/20 22:15 03/01/20 22:37 Temperature 98.6 F Pulse Rate 75 70 68 Respiratory Rate 18 18 Blood Pressure 162/90 H 156/93 H Pulse Oximetry 96 96 95 MDM - Allergic Reaction Differential Diagnosis Differential diagnosis: Likely allergic reaction and other (Allergic rhinitis/conjunctivitis) MDM Narrative Medical decision making narrative: Appropriate for discharge home. Not toxic. Prescribed patient eyedrops as well as Flonase. Patient states he will take [id number] allergy medication. Patient in no distress at time of discharge Discharge Plan Departure Patient Disposition: Home Clinical Impression: Allergic reaction Qualifiers: Encounter type: initial encounter Qualified Code(s): T78.40XA - Allergy, unspec ified, initial encounter Discharge Date/Time: 03/01/20 22:55 Instructions: DI for Allergic Rhinitis Activity Restrictions/Additional Instructions: See family doctor this week for recheck. Continue steroid pack tomorrow. May continue [id number] allergy medication. Return if worse or any trouble breathing or any rash Prescriptions: New methylprednisolone [Medrol (Khang)] 4 mg tablets,dose pack See Rx Instructions .ROUTE .COMPLEX Qty: 21 RF: 0 fluticasone propionate [Flonase Allergy Relief] 50 mcg/actuation spray,suspension 1 spray NASAL DAILY Qty: 11.1 RF: 0 ketotifen fumarate 0.025 % (0.035 %) drops 1 drop EYE-BOTH BID 5 Days Qty: 5 RF: 0 No Action lisinopril 20 mg Tablet 20 mg PO DAILY RF: 0 hydrochlorothiazide 25 mg Tablet 25 mg PO DAILY RF: 0 Aspir-81 81 mg PO DAILY RF: 0 simvastatin 20 mg Tablet 20 mg PO QPM RF: 0 fluoxetine 20 mg Tablet 20 mg PO DAILY RF: 0 Referrals: Maribell Olivier DO [Primary Care Provider] -
[2020-03-01] MEDS: predniSONE 20 MG TABLET 60 MG PO (22:11)
[2020-03-01 22:15] VITALS: BP 156/93; PULSE 70; RESP 18; O2SAT 96
[2020-03-01 22:37] VITALS: PULSE 68; O2SAT 95
[2020-03-01] MEDS: OXYMETAZOLINE NASAL SPRAY 15 ML 2 SPRAYS NASAL (22:49)
== END 2020-03-01 22:55 | disposition home or self-care (01) ==
PROVIDERS: Emergency Provider Emergency Medicine; PCP Family Medicine
DX: T78.40XA Allergy, unspecified, initial encounter (principal)
CPT/HCPCS: 99283; A9270

== ENCOUNTER 2024-09-16 07:43 | Day surgery (SDC) | payer OTHER, SELFPAY ==
[2024-09-16 07:57] VITALS: BP 161/89; PULSE 71; RESP 18; TEMP 36.8; O2SAT 98
[2024-09-16] MEDS: LACTATED RINGERS 1,000 ML 42 ML IV (08:12)
--- NOTE | 2024-09-16 08:46 | PM.HP.IH.1 ---
History of Present Illness History of Present Illness Date Patient Seen: 09/16/24 Chief complaint: SDC Narrative: Colorectal cancer screening in the face of sigmoid resection for diverticular disease PFSH Medical History (Updated 03/16/20 @ 00:00 by ) Skin cancer of lip Depression Hyperlipidemia Hypertension Small bowel obstruction Surgical History Hx of tonsillectomy History of appendectomy History of colon resection Social History household members: spouse Smoking Status: Current some day smoker alcohol intake: current Meds Home Medications and Allergies Home Medications Medication Instructions Recorded Confirmed Type fluoxetine 20 mg tablet 20 mg PO DAILY 01/08/18 09/16/24 History simvastatin 20 mg tablet 20 mg PO QPM 01/08/18 09/16/24 History Aspir-81 81 mg PO DAILY 02/27/19 02/27/19 History hydrochlorothiazide 25 mg tablet 25 mg PO DAILY 02/27/19 09/16/24 History lisinopril 20 mg tablet 20 mg PO DAILY 02/27/19 09/16/24 History fluticasone propionate 50 1 spray intranasal DAILY #11.1 mL 03/01/20 Rx mcg/actuation nasal spray,suspension (Flonase Allergy Relief) Allergies Allergy/AdvReac Type Severity Reaction Status Date / Time No Known Drug Allergies Allergy Verified 09/16/24 07:52 Exam Vital Signs (past 8 hours): - 09/16/24 07:57 Temperature 98.2 F Pulse Rate 71 Respiratory Rate 18 Blood Pressure 161/89 H Pulse Oximetry 98 Oxygen Delivery Method Room Air Oxygen Delivery Method Room Air Narrative Exam Narrative: Oropharynx free of lesions Chest clear to auscultation percussion Cardiac exam reveals no S3 or murmur Assessment & Plan Assessment & Plan narrative: Colorectal cancer screening. No history of polyps. Risks, benefits, alternatives have been explained. Time-Based Coding :: [TOTAL MINUTES] spent with patient and on the chart (including review of chart, obtaining history, exam, reviewing outside data, placing orders, documenting exam and treatment plan, and counseling patient) on [DATE]. PROFEE Certified Juvenile Probation Officer Document charge(s): No
--- NOTE | 2024-09-16 08:47 | PM.OP.COLON ---
Operative Date/Time/Diagnoses Date of procedure: 09/16/24 Pre-op diagnosis: See indication and findings Procedure & Clinicians Study performed: Colonoscopy Same procedure as scheduled: Yes Indications: Colorectal cancer screening Surgeon: Diane Bradley Procedure Notes Procedure in detail: After informed consent was obtained the patient was placed in left lateral decubitus position. The video colonoscope was introduced the rectum slowly advanced cecum. Preparation was good. On slow withdrawal mucosa was carefully examined. The scope was removed. The patient tolerated procedure well. Blood loss none Complications none Sedation mac Findings 1. Sigmoid resection at 25 cm. Wide open anastomosis side by side. 2. Left-sided diverticulosis 3. Otherwise negative colonoscopy to cecum. Given 2- colonoscopies in a row for polyps I think we can safely stretch out the patient's colonoscopies to 10 years if desired.
[2024-09-16 09:15] VITALS: BP 117/74; PULSE 73; RESP 14; TEMP 36.6; O2SAT 97
[2024-09-16 09:20] VITALS: BP 126/81; PULSE 66; RESP 18; O2SAT 97
[2024-09-16 09:25] VITALS: BP 132/76; PULSE 72; RESP 16; O2SAT 97
[2024-09-16 09:30] VITALS: BP 136/74; PULSE 68; RESP 15; O2SAT 97
== END 2024-09-16 09:42 | disposition home or self-care (01) ==
PROVIDERS: PCP Family Medicine; Referring Provider Internal Medicine Gastroenterology; Visit Provider Internal Medicine Gastroenterology
PROC: 0DJD8ZZ Inspection of Lower Intestinal Tract, Via Natural or Artificial Opening Endoscopic (ICD-10-PCS; CPT 45378; principal; 2024-09-16 09:00)
DX: Z12.11 Encounter for screening for malignant neoplasm of colon (principal); Z90.49 Acquired absence of other specified parts of digestive tract; F17.210 Nicotine dependence, cigarettes, uncomplicated; K57.30 Diverticulosis of large intestine without perforation or abscess without bleeding
CPT/HCPCS: 45378; J2704